=== PATIENT | female | born 1990 | race Caucasian/White ===

== ENCOUNTER 2020-12-14 14:19 | Inpatient (IN) | payer BC ==
[2020-12-14] MEDS ORDERED: Ondansetron 4 MG/2 ML SDV IVPUSH PRN (14:24)
[2020-12-14] MEDS ORDERED: Misoprostol 100 MCG Tab VAG PRN (14:24)
[2020-12-14] MEDS ORDERED: Sodium Chloride 0.9% 10 ML Syringe FLUSH PRN (14:24)
[2020-12-14] MEDS ORDERED: Nalbuphine 10 MG/1 ML Vial IVPUSH PRN (14:24)
--- NOTE | 2020-12-14 14:28 | PCM.LDHP ---
L&D History of Present Illness - General Date of Service: 12/14/20 Admit Problem/Dx: Patient Status Order with Admit Dx/Problem 12/14/20 14:24 Patient Status [ADT] Routine Admission Diagnosis/Problem Admission Diagnosis/Problem Elevated blood pressure Source of Information: Patient History Limitations: Reports: No Limitations - History of Present Illness Introduction:: Patient is a 29 y/o at 39 1/7 wks who presents for IOL for elevated BP seen in clinic. Doing well otherwise. - Related Data Allergies/Adverse Reactions: Allergies Allergy/AdvReac Type Severity Reaction Status Date / Time Latex, Natural Rubber Allergy Hives Verified 12/14/20 14:52 Past Medical History AXLE TURNER History: Reports: : 2 Para: 0 LMP (Approximate): - Past Surgical History HEENT Surgical History: Reports: Oral Surgery (wisdom tooth extraction) Social & Family History - Tobacco Use Tobacco Use Status *Q: Never Tobacco User - Alcohol Use Alcohol Use History: No - Recreational Drug Use Recreational Drug Use: No H&P Review of Systems - Review of Systems: Review Of Systems: See Below General: Reports: No Symptoms Pulmonary: Reports: No Symptoms Cardiovascular: Reports: No Symptoms Gastrointestinal: Reports: No Symptoms Genitourinary: Reports: No Symptoms Musculoskeletal: Reports: No Symptoms Psychiatric: Reports: No Symptoms Neurological: Reports: No Symptoms L&D Exam - Exam Exam: See Below - OB Specific Contraction Intensity: Irritability Movement: Active Heart Tones: Present Heart Tones per Min: 130 Heart Rate (FHR) Variability: Moderate (6-25 bmp) Presentation: Vertex - Roberson Score Roberson Score Cervix Position: Posterior Roberson Score Consistency: Medium Roberson Score Effacement: 0-30% Roberson Score Dilation: 1-2 cm Roberson Score Infant's Station: -3 Roberson Score Total: 2 - Exam General: Alert, Oriented, Cooperative Lungs: Clear to Auscultation, Normal Respiratory Effort Cardiovascular: Regular Rate, Regular Rhythm GI/Abdominal Exam: Soft, Non-Tender Genitourinary: Normal external exam Extremities: Normal Inspection Skin: Warm, Dry, Intact - Patient Data Result Diagrams: 12/14/20 14:44 12/14/20 14:44 - Problem List (1) 39 weeks gestation of SNOMED Code(s): 67344300 ICD Code: Z3A.39 - 39 WEEKS GESTATION OF Status: Acute Current Visit: Yes (2) Preeclampsia SNOMED Code(s): 176338442 ICD Code: O14.90 - UNSPECIFIED PRE-ECLAMPSIA, UNSPECIFIED TRIMESTER Status: Acute Current Visit: Yes Qualifiers: Trimester: third trimester Qualified Code(s): O14.93 - Unspecified pre- eclampsia, third trimester Problem List Initiated/Reviewed/Updated: Yes Orders Last 24hrs: Active Orders 24 hr Category Date Time Status Patient Status [ADT] Routine ADT 12/14/20 14:24 Active Communication Order [RC] ASDIRECTED Care 12/14/20 14:24 Active Communication Order [RC] ASDIRECTED Care 12/14/20 14:24 Active Communication Order [RC] ASDIRECTED Care 12/14/20 14:24 Active Non Stress Test [RC] PER UNIT ROUTINE Care 12/14/20 14:24 Active Notify Provider [RC] ASDIRECTED Care 12/14/20 14:24 Active Notify Provider [RC] ASDIRECTED Care 12/14/20 14:25 Active Notify Provider [RC] PRN Care 12/14/20 14:24 Active Peripheral IV Care [RC] . DIRECTED Care 12/14/20 14:25 Active Up ad Adeola [RC] ASDIRECTED Care 12/14/20 14:25 Active Vaginal Exam [RC] ASDIRECTED Care 12/14/20 14:24 Active Vital Signs [RC] ASDIRECTED Care 12/14/20 14:24 Active Vital Signs [RC] PER UNIT ROUTINE Care 12/14/20 14:24 Active Regular Diet [DIET] Diet 12/14/20 Lunch Active ALANINE AMINOTRANSFERASE,ALT [CHEM] Routine Lab 12/14/20 14:24 Ordered ASPARTATE AMNIOTRANSFERASE,AST [CHEM] Routine Lab 12/14/20 14:24 Ordered CBC W/O DIFF,HEMOGRAM [HEME] Routine Lab 12/14/20 14:24 Ordered CREATININE W/GFR [CHEM] Routine Lab 12/14/20 14:24 Ordered PROTEIN/CREATININE RATIO,URINE [URCHEM] Routine Lab 12/14/20 14:24 Ordered RAPID PLASMA REAGIN,RPR [CHEM] Routine Lab 12/14/20 14:24 Ordered TYPE AND SCREEN [BBK] Routine Lab 12/14/20 14:24 Ordered Ampicillin 1 gm Med 12/15/20 04:30 Ordered Sodium Chloride 0.9% [Normal Saline] 100 ml IV Q4H Ampicillin 2 gm Med 12/15/20 00:30 Ordered Sodium Chloride 0.9% [Normal Saline] 100 ml IV ONETIME Lactated Ringers [Ringers, Lactated] 1,000 ml Med 12/14/20 14:30 Ordered IV ASDIRECTED Nalbuphine [Nubain] Med 12/14/20 14:24 Ordered 10 mg IVPUSH Q2H PRN Ondansetron [Zofran] Med 12/14/20 14:24 Ordered 4 mg IVPUSH Q4H PRN Oxytocin/Lactated Ringers [Pitocin in LR 10 Units/1,000 Med 12/14/20 14:30 Or dered ML] 10 unit in 1,000 ml IV .CONTINUOUS Oxytocin/Lactated Ringers [Pitocin in LR 10 Units/1,000 Med 12/14/20 14:30 Ordered ML] 10 unit in 1,000 ml IV TITRATE Sodium Chloride 0.9% [Saline Flush] Med 12/14/20 14:24 Ordered 10 ml FLUSH ASDIRECTED PRN miSOPROStoL [Cytotec] Med 12/14/20 14:24 Ordered 25 mcg VAG Q4H PRN Electronic Heart Tones Internal [WOMSER] Per Unit Oth 12/14/20 14:24 Ordered Routine Medication Administration Instruction [OM.PC] Oth 12/14/20 14:30 Ordered ASDIRECTED Peripheral IV Insertion Adult [OM.PC] Routine Oth 12/14/20 14:24 Ordered Resuscitation Status Routine Resus Stat 12/14/20 14:24 Ordered Medication Orders Oxytocin/Lactated Ringer's (Pitocin In Lr 10 Units/1,000 Ml) 10 unit in 1,000 mls @ 12 mls/hr IV TITRATE MAYNOR; Protocol Ampicillin Sodium 2 gm/ Sodium (Chloride) 100 mls @ 200 mls/hr IV ONETIME ONE Stop: 12/15/20 00:59 Ampicillin Sodium 1 gm/ Sodium (Chloride) 100 mls @ 200 mls/hr IV Q4H MAYNOR Oxytocin/Lactated Ringer's (Pitocin In Lr 10 Units/1,000 Ml) 10 unit in 1,000 mls @ 500 mls/hr IV .CONTINUOUS MAYNOR Lactated Ringer's (Ringers, Lactated) 1,000 mls @ 40 mls/hr IV ASDIRECTED MAYNOR Misoprostol (Cytotec) 25 mcg VAG Q4H PRN PRN Reason: cervical ripening Nalbuphine HCl (Nubain) 10 mg IVPUSH Q2H PRN PRN Reason: Pain Ondansetron HCl (Zofran) 4 mg IVPUSH Q4H PRN PRN Reason: Nausea/Vomiting Sodium Chloride (Saline Flush) 10 ml FLUSH ASDIRECTED PRN PRN Reason: Keep Vein Open Assessment/Plan Comment:: * Labs done and c/w preeclampsia. Monitor BP's closely * Induction to be done with Cytotec. Pitocin/AROM when appropriate * GBS positive, will start Ampicillin in more active labor * Pain management per patient preference * Anticipate
[2020-12-14] MEDS ORDERED: Misoprostol 25 MCG (1/4 of 100 MCG) Tab ONE ×2 (15:11→18:56)
[2020-12-14] MEDS: Lactated Ringers 1,000 ML IV SCH (15:18)
--- NOTE | 2020-12-14 21:03 | PCM.PNLD ---
Labor Progress Note - VS & Meds Vital Signs: Last Vital Signs Temp 37.0 C 12/14/20 14:24 Pulse 94 12/14/20 14:24 Resp 16 12/14/20 14:24 BP 134/84 12/14/20 14:24 Pulse Ox 99 12/14/20 14:24 Active Medications: Current Medications Oxytocin/Lactated Ringer's (Pitocin In Lr 10 Units/1,000 Ml) 10 unit in 1,000 mls @ 12 mls/hr IV TITRATE MAYNOR; Protocol Ampicillin Sodium 2 gm/ Sodium (Chloride) 100 mls @ 200 mls/hr IV ONETIME ONE Stop: 12/15/20 00:59 Ampicillin Sodium 1 gm/ Sodium (Chloride) 100 mls @ 200 mls/hr IV Q4H [facility] Oxytocin/Lactated Ringer's (Pitocin In Lr 10 Units/1,000 Ml) 10 unit in 1,000 mls @ 500 mls/hr IV .CONTINUOUS MAYNOR Lactated Ringer's (Ringers, Lactated) 1,000 mls @ 40 mls/hr IV ASDIRECTED MAYNOR Last Admin: 12/14/20 15:18 Dose: 40 mls/hr Documented by: Misoprostol (Cytotec) 25 mcg VAG Q4H PRN PRN Reason: cervical ripening Nalbuphine HCl (Nubain) 10 mg IVPUSH Q2H PRN PRN Reason: Pain Ondansetron HCl (Zofran) 4 mg IVPUSH Q4H PRN PRN Reason: Nausea/Vomiting Sodium Chloride (Saline Flush) 10 ml FLUSH ASDIRECTED PRN PRN Reason: Keep Vein Open Discontinued Medications Misoprostol (Cytotec) Confirm Administered Dose 25 mcg .ROUTE .STK-MED ONE Stop: 12/14/20 15:12 Last Admin: 12/14/20 15:18 Dose: 25 mcg Documented by: Misoprostol (Cytotec) Confirm Administered Dose 25 mcg .ROUTE .STK-MED ONE Stop: 12/14/20 18:57 Last Admin: 12/14/20 20:41 Dose: 25 mcg Documented by: - Uterine Contractions Uterine Monitoring Mode: External [place] Contraction Intensity: Mild Uterine Resting Tone: Soft - Monitoring Monitor Mode: External Ultrasound Heart Rate (FHR) Baseline: 135 Heart Rate (FHR) Variability: Moderate (6-25 bmp) Accelerations: Present, 15x15 Decelerations: None Strip Review: Category I - Vaginal Exam Dilation (cm): 1.5 Effacement (Percent): 60 Station: -3 Cervical Position: Midposition - Labor Progress (Free Text) Labor Progress: Doing well. 2nd dose of Cytotec placed. Continue present management
[2020-12-15] MEDS ORDERED: Ampicillin 2 GM in Sodium Chloride 0.9% 100 ML IV ONE (00:30)
[2020-12-15] MEDS: Oxytocin/Lactated Ringers 10 UNIT/1,000 ML BAG IV SCH ×2 (04:10→21:11)
[2020-12-15] MEDS: Ampicillin 1 GM in Sodium Chloride 0.9% 100 ML IV SCH ×5 (04:52→21:10)
--- NOTE | 2020-12-15 07:05 | PCM.PNLD ---
Labor Progress Note - VS & Meds Vital Signs: Last Vital Signs Temp 37.0 C 12/14/20 14:24 Pulse 94 12/14/20 14:24 Resp 16 12/14/20 14:24 BP 134/84 12/14/20 14:24 Pulse Ox 99 12/14/20 14:24 Active Medications: Current Medications Oxytocin/Lactated Ringer's (Pitocin In Lr 10 Units/1,000 Ml) 10 unit in 1,000 mls @ 12 mls/hr IV TITRATE MAYNOR; Protocol Last Titration: 12/15/20 04:53 Dose: 4 munits/min, 24 mls/hr Documented by: Ampicillin Sodium 1 gm/ Sodium (Chloride) 100 mls @ 200 mls/hr IV Q4H MAYNOR Last Admin: 12/15/20 04:52 Dose: 200 mls/hr Documented by: Oxytocin/Lactated Ringer's (Pitocin In Lr 10 Units/1,000 Ml) 10 unit in 1,000 mls @ 500 mls/hr IV .CONTINUOUS MAYNOR Lactated Ringer's (Ringers, Lactated) 1,000 mls @ 40 mls/hr IV ASDIRECTED MAYNOR Last Admin: 12/14/20 15:18 Dose: 40 mls/hr Documented by: Misoprostol (Cytotec) 25 mcg VAG Q4H PRN PRN Reason: cervical ripening Nalbuphine HCl (Nubain) 10 mg IVPUSH Q2H PRN PRN Reason: Pain Ondansetron HCl (Zofran) 4 mg IVPUSH Q4H PRN PRN Reason: Nausea/Vomiting Sodium Chloride (Saline Flush) 10 ml FLUSH ASDIRECTED PRN PRN Reason: Keep Vein Open Discontinued Medications Ampicillin Sodium 2 gm/ Sodium (Chloride) 100 mls @ 200 mls/hr IV ONETIME ONE Stop: 12/15/20 00:59 Last Admin: 12/15/20 01:03 Dose: 200 mls/hr Documented by: Misoprostol (Cytotec) Confirm Administered Dose 25 mcg .ROUTE .STK-MED ONE Stop: 12/14/20 15:12 Last Admin: 12/14/20 15:18 Dose: 25 mcg Documented by: Misoprostol (Cytotec) Confirm Administered Dose 25 mcg .ROUTE .STK-MED ONE Stop: 12/14/20 18:57 Last Admin: 12/14/20 20:41 Dose: 25 mcg Documented by: - Uterine Contractions Uterine Monitoring Mode: External [place] Contraction Intensity: Mild to Moderate Uterine Resting Tone: Soft - Monitoring Monitor Mode: External Ultrasound Heart Rate (FHR) Baseline: 135 Heart Rate (FHR) Variability: Moderate (6-25 bmp) Accelerations: Present, 15x15 Decelerations: None Strip Review: Category I - Vaginal Exam Dilation (cm): 3.5 Effacement (Percent): 60 Station: -2 Cervical Position: Midposition - Labor Progress (Free Text) Labor Progress: Doing well. Pitocin at 4. Continue present management. Continue antibiotic prophylaxis. BP's upper normal to mild range.
[2020-12-15] MEDS ORDERED: diphenhydrAMINE 50 MG/ML SDV IVPUSH PRN (07:10)
[2020-12-15] MEDS ORDERED: Bupivacaine/fentaNYL/NS 100 ML Bag EPIDUR PRN (07:10)
[2020-12-15] MEDS ORDERED: ePHEDrine 50 MG/ML SDV IVPUSH PRN (07:10)
[2020-12-15] MEDS: Lactated Ringers 1,000 ML IV SCH (07:20)
--- NOTE | 2020-12-15 11:57 | PCM.PNLD ---
Labor Progress Note - VS & Meds Vital Signs: Last Vital Signs Temp 37.0 C 12/14/20 14:24 Pulse 94 12/14/20 14:24 Resp 16 12/14/20 14:24 BP 134/84 12/14/20 14:24 Pulse Ox 99 12/14/20 14:24 Active Medications: Current Medications Diphenhydramine HCl (Benadryl) 25 mg IVPUSH Q6H PRN PRN Reason: pruritis Ephedrine Sulfate (Ephedrine Sulfate) 5 mg IVPUSH ASDIRECTED PRN PRN Reason: Hypotension Fentanyl (Sublimaze) 100 mcg EPIDUR Q3H PRN PRN Reason: Pain Fentanyl/Bupivacaine HCl (Fentanyl/Bupivacaine/Ns 2 Mcg-0.125% 100 Ml) 100 ml EPIDUR ASDIRECTED PRN PRN Reason: Pain Oxytocin/Lactated Ringer's (Pitocin In Lr 10 Units/1,000 Ml) 10 unit in 1,000 mls @ 12 mls/hr IV TITRATE MAYNOR; Protocol Last Titration: 12/15/20 09:21 Dose: 8 munits/min, 48 mls/hr Documented by: Ampicillin Sodium 1 gm/ Sodium (Chloride) 100 mls @ 200 mls/hr IV Q4H MAYNOR Last Admin: 12/15/20 09:20 Dose: 200 mls/hr Documented by: Oxytocin/Lactated Ringer's (Pitocin In Lr 10 Units/1,000 Ml) 10 unit in 1,000 mls @ 500 mls/hr IV .CONTINUOUS MAYNOR Lactated Ringer's (Ringers, Lactated) 1,000 mls @ 40 mls/hr IV ASDIRECTED MAYNOR Last Admin: 12/15/20 07:20 Dose: 40 mls/hr Documented by: Misoprostol (Cytotec) 25 mcg VAG Q4H PRN PRN Reason: cervical ripening Nalbuphine HCl (Nubain) 10 mg IVPUSH Q2H PRN PRN Reason: Pain Ondansetron HCl (Zofran) 4 mg IVPUSH Q4H PRN PRN Reason: Nausea/Vomiting Sodium Chloride (Saline Flush) 10 ml FLUSH ASDIRECTED PRN PRN Reason: Keep Vein Open Discontinued Medications Ampicillin Sodium 2 gm/ Sodium (Chloride) 100 mls @ 200 mls/hr IV ONETIME ONE Stop: 12/15/20 00:59 Last Admin: 12/15/20 01:03 Dose: 200 mls/hr Documented by: Misoprostol (Cytotec) Confirm Administered Dose 25 mcg .ROUTE .STK-MED ONE Stop: 12/14/20 15:12 Last Admin: 12/14/20 15:18 Dose: 25 mcg Documented by: Misoprostol (Cytotec) Confirm Administered Dose 25 mcg .ROUTE .STK-MED ONE Stop: 12/14/20 18:57 Last Admin: 12/14/20 20:41 Dose: 25 mcg Documented by: - Uterine Contractions Uterine Monitoring Mode: External [place] Contraction Intensity: Mild to Moderate Uterine Resting Tone: Soft - Monitoring Monitor Mode: External Ultrasound Heart Rate (FHR) Baseline: 135 Heart Rate (FHR) Variability: Moderate (6-25 bmp) Accelerations: Present, 15x15 Decelerations: Variable (rare) Strip Review: Category II - Vaginal Exam Dilation (cm): 3.5 Effacement (Percent): 60 Station: -2 Cervical Position: Midposition - Labor Progress (Free Text) Labor Progress: Pitocin at 9. Exam similar to previous. AROM performed with release of clear fluid. BP's remain mild range. Denies signs/symptoms. Continue antibiotics for GBS positive status
--- NOTE | 2020-12-15 17:26 | PCM.PNLD ---
Labor Progress Note - VS & Meds Vital Signs: Last Vital Signs Temp 37.0 C 12/14/20 14:24 Pulse 94 12/14/20 14:24 Resp 16 12/14/20 14:24 BP 134/84 12/14/20 14:24 Pulse Ox 99 12/14/20 14:24 Active Medications: Current Medications Diphenhydramine HCl (Benadryl) 25 mg IVPUSH Q6H PRN PRN Reason: pruritis Ephedrine Sulfate (Ephedrine Sulfate) 5 mg IVPUSH ASDIRECTED PRN PRN Reason: Hypotension Fentanyl (Sublimaze) 100 mcg EPIDUR Q3H PRN PRN Reason: Pain Fentanyl/Bupivacaine HCl (Fentanyl/Bupivacaine/Ns 2 Mcg-0.125% 100 Ml) 100 ml EPIDUR ASDIRECTED PRN PRN Reason: Pain Oxytocin/Lactated Ringer's (Pitocin In Lr 10 Units/1,000 Ml) 10 unit in 1,000 mls @ 12 mls/hr IV TITRATE MAYNOR; Protocol Last Titration: 12/15/20 10:15 Dose: 9 munits/min, 54 mls/hr Documented by: Ampicillin Sodium 1 gm/ Sodium (Chloride) 100 mls @ 200 mls/hr IV Q4H MAYNOR Last Admin: 12/15/20 17:14 Dose: 200 mls/hr Documented by: Oxytocin/Lactated Ringer's (Pitocin In Lr 10 Units/1,000 Ml) 10 unit in 1,000 mls @ 500 mls/hr IV .CONTINUOUS MAYNOR Lactated Ringer's (Ringers, Lactated) 1,000 mls @ 40 mls/hr IV ASDIRECTED MAYNOR Last Admin: 12/15/20 07:20 Dose: 40 mls/hr Documented by: Misoprostol (Cytotec) 25 mcg VAG Q4H PRN PRN Reason: cervical ripening Nalbuphine HCl (Nubain) 10 mg IVPUSH Q2H PRN PRN Reason: Pain Ondansetron HCl (Zofran) 4 mg IVPUSH Q4H PRN PRN Reason: Nausea/Vomiting Sodium Chloride (Saline Flush) 10 ml FLUSH ASDIRECTED PRN PRN Reason: Keep Vein Open Discontinued Medications Ampicillin Sodium 2 gm/ Sodium (Chloride) 100 mls @ 200 mls/hr IV ONETIME ONE Stop: 12/15/20 00:59 Last Admin: 12/15/20 01:03 Dose: 200 mls/hr Documented by: Misoprostol (Cytotec) Confirm Administered Dose 25 mcg .ROUTE .STK-MED ONE Stop: 12/14/20 15:12 Last Admin: 12/14/20 15:18 Dose: 25 mcg Documented by: Misoprostol (Cytotec) Confirm Administered Dose 25 mcg .ROUTE .STK-MED ONE Stop: 12/14/20 18:57 Last Admin: 12/14/20 20:41 Dose: 25 mcg Documented by: - Uterine Contractions Uterine Monitoring Mode: External [place] Contraction Intensity: Mild to Moderate Uterine Resting Tone: Soft - Monitoring Monitor Mode: External Ultrasound Heart Rate (FHR) Baseline: 135 Heart Rate (FHR) Variability: Moderate (6-25 bmp) Accelerations: Present, 15x15 Decelerations: None Strip Review: Category I - Labor Progress (Free Text) Labor Progress: Doing well. Patient on 11 of pitocin. Starting to get more uncomfortable. Defer SVE for now as ruptured. Reassess as needed
[2020-12-15] MEDS: fentaNYL 100 MCG/2 ML SDV EPIDUR PRN (22:47)
--- NOTE | 2020-12-15 23:19 | PCM.PREANE ---
Preanesthetic Assessment - Procedure Proposed Procedure: epidural - Anesthesia/Transfusion/Family Hx Anesthesia History: No Prior Anesthesia Family History of Anesthesia Reaction: No Transfusion History: No Prior Transfusion(s) - Review of Systems General: Fatigue, Malaise Pulmonary: No Symptoms Cardiovascular: No Symptoms Gastrointestinal: Abdominal Pain (labor) Neurological: No Symptoms Other: Reports: None - Physical Assessment Vital Signs: Last Vital Signs Temp 37.0 C 12/14/20 14:24 Pulse 94 12/14/20 14:24 Resp 16 12/14/20 14:24 BP 134/84 12/14/20 14:24 Pulse Ox 99 12/14/20 14:24 Height: 1.65 m Weight: 104.78 kg ASA Class: 2 Mental Status: Alert & Oriented x3 Airway Class: Mallampati = 2 Dentition: Reports: Normal Dentition Thyro-Mental Finger Breadths: 3 Mouth Opening Finger Breadths: 2 ROM/Head Extension: Full Lungs: Clear to Auscultation, Normal Respiratory Effort Cardiovascular: Regular Rate, Regular Rhythm - Lab Values: Laboratory Last Values WBC 7.64 K/mm3 (3.98-10.04) 12/14/20 14:44 RBC 4.06 M/mm3 (3.98-5.22) 12/14/20 14:44 Hgb 12.3 gm/dl (11.2-15.7) 12/14/20 14:44 Hct 37.9 % (34.1-44.9) 12/14/20 14:44 MCV 93.3 fl (79.4-94.8) 12/14/20 14:44 MCH 30.3 pg (25.6-32.2) 12/14/20 14:44 MCHC 32.5 g/dl (32.2-35.5) 12/14/20 14:44 RDW Std Deviation 45.1 fL (36.4-46.3) 12/14/20 14:44 Plt Count 200 K/mm3 (182-369) 12/14/20 14:44 MPV 10.8 fl (9.4-12.3) 12/14/20 14:44 Creatinine 0.7 mg/dL (0.55-1.02) 12/14/20 14:44 Est Cr Clr Drug Dosing 104.78 mL/min 12/14/20 14:44 Estimated GFR (MDRD) > 60 mL/min (>60) 12/14/20 14:44 AST 22 U/L (15-37) 12/14/20 14:44 ALT 24 U/L (14-59) 12/14/20 14:44 Ur Random Creatinine 37.8 mg/dL (30.0-125.0) 12/14/20 14:35 U Random Total Protein 19.7 mg/dL (0.0-11.8) H 12/14/20 14:35 Protein/Creatinin Ratio 521.2 mg/g (0-149) H 12/14/20 14:35 RPR Non-reactive (NONREACTIVE) 12/14/20 14:44 SARS-CoV-2 RNA (SVEN) Negative (NEGATIVE) 12/14/20 15:00 Blood Type O POSITIVE 12/14/20 14:44 Gel Antibody Screen Negative 12/14/20 14:44 - Allergies Allergies/Adverse Reactions: Allergies Allergy/AdvReac Type Severity Reaction Status Date / Time Latex, Natural Rubber Allergy Hives Verified 12/14/20 14:52 - Anesthesia Plan Pre-Op Medication Ordered: None - Acknowledgements Anesthesia Type Planned: Epidural Pt an Appropriate Candidate for the Planned Anesthesia: Yes Alternatives and Risks of Anesthesia Discussed w Pt/Guardian: Yes Pt/Guardian Understands and Agrees with Anesthesia Plan: Yes PreAnesthesia Questionnaire - Past Health History Medical/Surgical History: Denies Medical/Surgical History Gastrointestinal History: Reports: GERD RN NICU History: Reports: - Past Surgical History HEENT Surgical History: Reports: Oral Surgery (wisdom tooth extraction) - SUBSTANCE USE Tobacco Use Status *Q: Never Tobacco User Tobacco Use Within Last Twelve Months: No Recreational Drug Use History: No - CURRENT (IN HOUSE) MEDS Current Meds: Current Medications Diphenhydramine HCl (Benadryl) 25 mg IVPUSH Q6H PRN PRN Reason: pruritis Ephedrine Sulfate (Ephedrine Sulfate) 5 mg IVPUSH ASDIRECTED PRN PRN Reason: Hypotension Fentanyl (Sublimaze) 100 mcg EPIDUR Q3H PRN PRN Reason: Pain Last Admin: 12/15/20 22:47 Dose: 100 mcg Documented by: Fentanyl/Bupivacaine HCl (Fentanyl/Bupivacaine/Ns 2 Mcg-0.125% 100 Ml) 100 ml EPIDUR ASDIRECTED PRN PRN Reason: Pain Last Admin: 12/15/20 22:48 Dose: 100 ml Documented by: Oxytocin/Lactated Ringer's (Pitocin In Lr 10 Units/1,000 Ml) 10 unit in 1,000 mls @ 12 mls/hr IV TITRATE MAYNOR; Protocol Last Titration: 12/15/20 22:41 Dose: 15 munits/min, 90 mls/hr Documented by: Ampicillin Sodium 1 gm/ Sodium (Chloride) 100 mls @ 200 mls/hr IV Q4H MAYNOR Last Admin: 12/15/20 21:10 Dose: 200 mls/hr Documented by: Oxytocin/Lactated Ringer's (Pitocin In Lr 10 Units/1,000 Ml) 10 unit in 1,000 mls @ 500 mls/hr IV .CONTINUOUS MAYNOR Lactated Ringer's (Ringers, Lactated) 1,000 mls @ 40 mls/hr IV ASDIRECTED MAYNOR Last Admin: 12/15/20 07:20 Dose: 40 mls/hr Documented by: Misoprostol (Cytotec) 25 mcg VAG Q4H PRN PRN Reason: cervical ripening Nalbuphine HCl (Nubain) 10 mg IVPUSH Q2H PRN PRN Reason: Pain Ondansetron HCl (Zofran) 4 mg IVPUSH Q4H PRN PRN Reason: Nausea/Vomiting Sodium Chloride (Saline Flush) 10 ml FLUSH ASDIRECTED PRN PRN Reason: Keep Vein Open Discontinued Medications Ampicillin Sodium 2 gm/ Sodium (Chloride) 100 mls @ 200 mls/hr IV ONETIME ONE Stop: 12/15/20 00:59 Last Admin: 12/15/20 01:03 Dose: 200 mls/hr Documented by: Misoprostol (Cytotec) Confirm Administered Dose 25 mcg .ROUTE .STK-MED ONE Stop: 12/14/20 15:12 Last Admin: 12/14/20 15:18 Dose: 25 mcg Documented by: Misoprostol (Cytotec) Confirm Administered Dose 25 mcg .ROUTE .STK-MED ONE Stop: 12/14/20 18:57 Last Admin: 12/14/20 20:41 Dose: 25 mcg Documented by:
[2020-12-16] MEDS ORDERED: Phenylephrine/Normal Saline 100 MCG/ML 10 ML Syringe ONE
[2020-12-16] MEDS ORDERED: Bupivacaine 0.25% 10 ML SDV ONE
[2020-12-16] MEDS: fentaNYL 100 MCG/2 ML SDV EPIDUR PRN (00:52)
--- NOTE | 2020-12-16 01:36 | PCM.SN.2 ---
- Free Text/Narrative Note: 0050 In room 31 patient complain of epidural not giving relief on right side. Epidural D/C tip intact. New epidural placed at L2-3. Patient getting equal relief. VSS out of room at 0140.
[2020-12-16] MEDS: Ampicillin 1 GM in Sodium Chloride 0.9% 100 ML IV SCH ×4 (01:57→15:17)
[2020-12-16] MEDS: Oxytocin/Lactated Ringers 10 UNIT/1,000 ML BAG IV SCH ×2 (07:19→12:07)
[2020-12-16] MEDS ORDERED: Misoprostol 200 MCG Tab PO STA (11:35)
--- NOTE | 2020-12-16 12:10 | PCM.DEL ---
L & D Note - General Info Date of Service: 12/16/20 - Delivery Note Labor: Induced by ARM, Induced by Oxytocin Cervical Ripening Method: Misoprostil Delivery Outcome: Livebirth Delivery Method: Spontaneous Vaginal Delivery-Single Infant Delivery Mode: Vacuum Extraction Presentation: Right Occiput Anterior (TOD) Nuchal Cord: Present (tight, not able to be reduced ) Anesthesia Type: Epidural Amniotic Fluid Description: Clear Episiotomy Type: None Laceration: 2nd Degree Suture type: Vicryl Suture size: 2-0 Placenta: Intact, Spontaneous Cord: 3 Vessels Estimated Blood Loss: 300 Resuscitation Needed: Yes : Bulb Syringe, Stimulated, Warmed, Burket Used, Warmer Used Delivery Comments (Free Text/Narrative):: The patient was pushing in the dorsal lithotomy position. Sterile vaginal exam complete/complete/ with pushing. head in TOD presentation. Maternal pushing effort was good and the pelvis was felt to be adequate for an instrument assisted delivery. Given maternal exhaustion (pushing for 4 hours) the decision was made to proceed with vacuum assisted vaginal delivery. The mushroom cup was placed without difficulty at 1123. Total pressure applied 550 mm Hg. Total pop offs 0. Suction was removed following delivery of the head at 1126. Nuchal cord present, but tight and so not reduced. The remainder of the delivered without difficulty at 1128. placed on maternal abdomen. Cord clamped and cut. Cord blood obtained. Placenta allowed time to separate and expelled intact. Moderate bleeding noted. Patient given 600 mcg of buccal Cytotec with good response. Inspection of perineum showed a 2nd degree laceration which extended close to rectum. Rectal exam showed no disruption of rectal mucosa or rectal sphincter. Laceration repaired with a 2-0 vicryl in typical fashion. Epidermis near rectum repaired with running 3-0 vicryl Vacuum Extractor Progress Note - Alternative Labor Strategies Considered Alternative Labor Strategies Considered:: Reports: Yes Strategies Considered:: Reports: Contraction Intensity Adequate, Position Changes Used to Facilitate Rotation & Descent, Empty Bladder Indications Considered:: Reports: Yes Indications:: Reports: Shortening of 2nd Stage for Maternal Benefit Time Out:: Reports: Yes - Patient Prepared Patient Prepared:: Reports: Yes Informed Consent:: Reports: Verbal Risks: Reports: Yes Risks Include:: Reports: Laceration, Shoulder Dystocia, Maternal Injury Anesthesia/Analgesia Adequate:: Reports: Yes - Probability of Success High Probability of Success:: Reports: Yes Weight Estimated:: Reports: AGA Patient Diabetic:: Reports: No Pelvis Adequate:: Reports: Yes Position:: TOD Asynclitic:: Reports: No Station:: with pushing - Application Time Maximum Application Time & Number of Pop-Offs Predetermined:: Reports: Yes Maximum Pressure Maintained in Green Zone (cm Hg):: 550 Total Application Time (min): *max=20min: 3 Number of Times Cup Disengaged:: 0 Type of Vacuum Used:: Reports: Cup: Mushroom type Vacuum Extraction: Successful - Exit Strategy Exit strategy available:: Reports: Yes and resuscitation teams readily available:: Reports: Yes - General Info Date of Service: 12/16/20 - Patient Data Vitals - Most Recent: Last Vital Signs Temp 37.0 C 12/14/20 14:24 Pulse 94 12/14/20 14:24 Resp 16 12/14/20 14:24 BP 134/84 12/14/20 14:24 Pulse Ox 99 12/14/20 14:24 Weight - Most Recent: 104.78 kg - Problem List & Annotations (1) 39 weeks gestation of SNOMED Code(s): 37498058 Code(s): Z3A.39 - 39 WEEKS GESTATION OF Status: Acute Current Visit: Yes (2) Preeclampsia SNOMED Code(s): 259462778 Code(s): O14.90 - UNSPECIFIED PRE-ECLAMPSIA, UNSPECIFIED TRIMESTER Status: Acute Current Visit: Yes Qualifiers: Trimester: third trimester Qualified Code(s): O14.93 - Unspecified pre- eclampsia, third trimester (3) Vacuum-assisted vaginal delivery SNOMED Code(s): 41191730616382276 Code(s): Z37.9 - OUTCOME OF DELIVERY, UNSPECIFIED Status: Acute Current Visit: Yes - Problem List Review Problem List Initiated/Reviewed/Updated: Yes - Assessment Assessment:: PPD#0 - Plan Plan:: * Routine cares * Breast feeding * Monitor BP's closely * Discharge home in 1-2 days
[2020-12-16] MEDS ORDERED: Witch Hazel Medicated Pads 40/Jar TOP PRN (13:26)
[2020-12-16] MEDS ORDERED: Acetaminophen 325 MG Tab PO PRN (13:26)
[2020-12-16] MEDS ORDERED: Benzocaine/Menthol 20%-0.5% Spray 56 GM Canister TOP PRN (13:26)
[2020-12-16] MEDS ORDERED: Ammonia Inhalant Amp ONE (14:06)
[2020-12-17] MEDS: Ibuprofen 600 MG Tab PO PRN (07:37)
--- NOTE | 2020-12-17 07:53 | PCM.PNPP ---
- General Info Date of Service: 12/17/20 Functional Status: Reports: Pain Controlled, Tolerating Diet, Ambulating, Urinating - Review of Systems General: Reports: No Symptoms Pulmonary: Reports: No Symptoms Cardiovascular: Reports: No Symptoms Gastrointestinal: Reports: No Symptoms Genitourinary: Reports: No Symptoms Musculoskeletal: Reports: No Symptoms Neurological: Reports: No Symptoms - Patient Data Vital Signs - Most Recent: Last Vital Signs Temp 36.8 C 12/17/20 03:00 Pulse 97 12/17/20 03:00 Resp 18 12/17/20 03:00 BP 115/90 12/17/20 03:00 Pulse Ox 100 12/17/20 03:00 Weight - Most Recent: 104.78 kg Med Orders - Current: Current Medications Acetaminophen (Tylenol) 650 mg PO Q4H PRN PRN Reason: mild pain or fever Benzocaine/Menthol (Dermoplast Pain Relief [place]) 0 gm TOP ASDIRECTED PRN PRN Reason: Perineal Comfort Measure Last Admin: 12/16/20 14:08 Dose: 1 applic Documented by: Docusate Sodium (Colace) 100 mg PO BID PRN PRN Reason: Constipation Ibuprofen (Motrin) 600 mg PO Q6H PRN PRN Reason: Mild pain or fever Last Admin: 12/17/20 07:37 Dose: 600 mg Documented by: Tony Dunham) 1 pad TOP ASDIRECTED PRN PRN Reason: Perineal Comfort Measure Last Admin: 12/16/20 14:08 Dose: 1 pad Documented by: Discontinued Medications Ammonia (Aromatic Spirit) (Ammonia Aromatic Inhalant) Confirm Administered Dose 1 ampule .ROUTE .STK-MED ONE Stop: 12/16/20 14:07 Last Admin: 12/16/20 15:17 Dose: Not Given Documented by: Bupivacaine HCl (Sensorcaine-Mpf 0.25%) 20 ml .ROUTE .STK-MED ONE Stop: 12/16/20 00:01 Diphenhydramine HCl (Benadryl) 25 mg IVPUSH Q6H PRN PRN Reason: pruritis Ephedrine Sulfate (Ephedrine Sulfate) 5 mg IVPUSH ASDIRECTED PRN PRN Reason: Hypotension Last Admin: 12/16/20 02:39 Dose: 5 mg Documented by: Fentanyl (Sublimaze) 100 mcg EPIDUR Q3H PRN PRN Reason: Pain Last Admin: 12/16/20 00:52 Dose: 100 mcg Documented by: Fentanyl/Bupivacaine HCl (Fentanyl/Bupivacaine/Ns 2 Mcg-0.125% 100 Ml) 100 ml EPIDUR ASDIRECTED PRN PRN Reason: Pain Last Admin: 12/15/20 22:48 Dose: 100 ml Documented by: Oxytocin/Lactated Ringer's (Pitocin In Lr 10 Units/1,000 Ml) 10 unit in 1,000 mls @ 12 mls/hr IV TITRATE MAYNOR; Protocol Last Titration: 12/16/20 06:17 Dose: 20 munits/min, 120 mls/hr Documented by: Ampicillin Sodium 2 gm/ Sodium (Chloride) 100 mls @ 200 mls/hr IV ONETIME ONE Stop: 12/15/20 00:59 Last Admin: 12/15/20 01:03 Dose: 200 mls/hr Documented by: Ampicillin Sodium 1 gm/ Sodium (Chloride) 100 mls @ 200 mls/hr IV Q4H MAYNOR Last Admin: 12/16/20 15:17 Dose: Not Given Documented by: Oxytocin/Lactated Ringer's (Pitocin In Lr 10 Units/1,000 Ml) 10 unit in 1,000 mls @ 500 mls/hr IV .CONTINUOUS MAYNOR Last Admin: 12/16/20 12:07 Dose: 500 mls/hr Documented by: Lactated Ringer's (Ringers, Lactated) 1,000 mls @ 40 mls/hr IV ASDIRECTED MAYNOR Last Admin: 12/15/20 07:20 Dose: 40 mls/hr Documented by: Misoprostol (Cytotec) 25 mcg VAG Q4H PRN PRN Reason: cervical ripening Misoprostol (Cytotec) Confirm Administered Dose 25 mcg .ROUTE .STK-MED ONE Stop: 12/14/20 15:12 Last Admin: 12/14/20 15:18 Dose: 25 mcg Documented by: Misoprostol (Cytotec) Confirm Administered Dose 25 mcg .ROUTE .STK-MED ONE Stop: 12/14/20 18:57 Last Admin: 12/14/20 20:41 Dose: 25 mcg Documented by: Misoprostol (Cytotec) 600 mcg PO ONETIME STA Stop: 12/16/20 11:36 Last Admin: 12/16/20 11:35 Dose: 600 mcg Documented by: Nalbuphine HCl (Nubain) 10 mg IVPUSH Q2H PRN PRN Reason: Pain Ondansetron HCl (Zofran) 4 mg IVPUSH Q4H PRN PRN Reason: Nausea/Vomiting Phenylephrine HCl (Phenylephrine In Ns 100 Mcg/Ml) 1 mg .ROUTE .STK-MED ONE Stop: 12/16/20 00:01 Sodium Chloride (Saline Flush) 10 ml FLUSH ASDIRECTED PRN PRN Reason: Keep Vein Open Tranexamic Acid (Cyklokapron) Confirm Administered Dose 1,000 mg .ROUTE .STK-MED ONE Stop: 12/16/20 09:57 Last Admin: 12/16/20 12:16 Dose: Not Given Documented by: - Infant Interaction Infant Disposition, : in Room with Family Interaction: Holding Infant Feeding: Attempted ; Nursed Fair/Poor Support Person: - Recovery Exam Fundal Tone: Firm Fundal Level: At Umbilicus Fundal Placement: Midline Lochia Amount: Small Lochia Color: Rubra/Red Perineum Description: Other (see below) Other Perinuem Description: second degree laceration with repair. Bladder Status: Voiding - Exam General: Alert, Oriented, Cooperative GI/Abdominal Exam: Soft, Non-Tender Skin: Warm, Dry, Intact - Problem List & Annotations (1) 39 weeks gestation of SNOMED Code(s): 16221407 Code(s): Z3A.39 - 39 WEEKS GESTATION OF Status: Acute Current Visit: Yes (2) Preeclampsia SNOMED Code(s): 525778879 Code(s): O14.90 - UNSPECIFIED PRE-ECLAMPSIA, UNSPECIFIED TRIMESTER Status: Acute Current Visit: Yes Qualifiers: Trimester: third trimester Qualified Code(s): O14.93 - Unspecified pre- eclampsia, third trimester (3) Vacuum-assisted vaginal delivery SNOMED Code(s): 81884010773565731 Code(s): Z37.9 - OUTCOME OF DELIVERY, UNSPECIFIED Status: Acute Current Visit: Yes - Problem List Review Problem List Initiated/Reviewed/Updated: Yes - My Orders Last 24 Hours: My Active Orders 12/16/20 Lunch Regular Diet [DIET] 12/16/20 13:26 Acetaminophen [TylenoL] 650 mg PO Q4H PRN Benzocaine/Menthol [Dermoplast Pain Relief [place]] See Dose Instructions TOP ASDIRECTED PRN Docusate Sodium [Colace] 100 mg PO BID PRN Ibuprofen [Motrin] 600 mg PO Q6H PRN witch Diamante [Tucks] 1 pad TOP ASDIRECTED PRN Heat Therapy [OM.PC] PRN 12/16/20 13:26 Activity as Tolerated [RC] PER UNIT ROUTINE Up ad Adeola [RC] ASDIRECTED Vital Signs [RC] ,,, Assess Lochia [WOMSER] Per Unit Routine Assess Uterine Involution [WOMSER] Per Unit Routine Breast Pump [WOMSER] Per Unit Routine Ice Therapy [OM.PC] Per Unit Routine Perineal Care [OM.PC] Per Unit Routine Peripheral IV Discontinue [OM.PC] Routine Sitz Bath [OM.PC] Per Unit Routine 12/17/20 13:26 Heat Therapy [OM.PC] PRN - Assessment Assessment:: PPD#1 - Plan Plan:: * Routine cares * Breast feeding * BP's normal to mild range * Discharge home tomorrow
[2020-12-17] MEDS: Docusate Sodium 100 MG Cap PO PRN (09:05)
[2020-12-18] MEDS: Ibuprofen 600 MG Tab PO PRN (05:20)
--- NOTE | 2020-12-18 07:35 | PCM.DCSUM1 ---
Discharge Summary - Discharge Data Discharge Date: 12/18/20 Discharge Disposition: Home, Self-Care 01 Condition: Good - Referral to Home Health Primary Care Physician: Patricia Knight MD - Discharge Diagnosis/Problem(s) (1) 39 weeks gestation of SNOMED Code(s): 95778197 ICD Code: Z3A.39 - 39 WEEKS GESTATION OF Status: Acute Current Visit: Yes (2) Preeclampsia SNOMED Code(s): 738212401 ICD Code: O14.90 - UNSPECIFIED PRE-ECLAMPSIA, UNSPECIFIED TRIMESTER Status: Acute Current Visit: Yes Qualifiers: Trimester: third trimester Qualified Code(s): O14.93 - Unspecified pre- eclampsia, third trimester (3) Vacuum-assisted vaginal delivery SNOMED Code(s): 47604705060781009 ICD Code: Z37.9 - OUTCOME OF DELIVERY, UNSPECIFIED Status: Acute Current Visit: Yes - Patient Summary/Data Complications: None Consults: None Recommended Follow-up Testing/Procedures: Follow up in 1 week for BP check and 3 weeks for check Hospital Course: 30 y/o at 39 1/7 wks presented from clinic due to findings of mild range BP's and subsequent diagnosis of preeclampsia without severe features. Induction started with cytotec. Eventually transitioned to pitocin and AROM. Progressed slowly, but consistently to complete dilation. After 4 hours of pushing underwent a VAVD for maternal exhaustion. BP's remained normal to mild range. Was discharged home on PPD#2 - Patient Instructions Diet: Regular Diet as Tolerated Activity: As Tolerated Activity, Other: Pelvic rest for 6 weeks Driving: May Drive Today Showering/Bathing: May Shower Showering/Bathing, Other: May Bathe Notify Provider of: Fever, Increased Pain, Swelling and Redness, Drainage, Nausea and/or Vomiting - Discharge Plan *PRESCRIPTION DRUG MONITORING PROGRAM REVIEWED*: No *COPY OF PRESCRIPTION DRUG MONITORING REPORT IN PATIENT JULIO: No Home Medications: Home Meds Docusate Sodium [Colace] 100 mg PO BID PRN cap 12/17/20 [Rx] Ibuprofen [Motrin] 600 mg PO Q6H PRN tablet 12/17/20 [Rx] Patient Handouts: , Care After Vaginal Delivery Referrals: Patricia Knight MD [Primary Care Provider] - (1 week for BP check 3 weeks for check ) - Discharge Summary/Plan Comment DC Time >30 min.: No - Patient Data Vitals - Most Recent: Last Vital Signs Temp 37.2 C 12/18/20 02:56 Pulse 107 H 12/18/20 02:56 Resp 16 12/18/20 02:56 BP 131/89 12/18/20 02:56 Pulse Ox 98 12/18/20 02:56 Weight - Most Recent: 104.78 kg Med Orders - Current: Current Medications Acetaminophen (Tylenol) 650 mg PO Q4H PRN PRN Reason: mild pain or fever Benzocaine/Menthol (Dermoplast Pain Relief [place]) 0 gm TOP ASDIRECTED PRN PRN Reason: Perineal Comfort Measure Last Admin: 12/16/20 14:08 Dose: 1 applic Documented by: Docusate Sodium (Colace) 100 mg PO BID PRN PRN Reason: Constipation Last Admin: 12/17/20 09:05 Dose: 100 mg Documented by: Ibuprofen (Motrin) 600 mg PO Q6H PRN PRN Reason: Mild pain or fever Last Admin: 12/18/20 05:20 Dose: 600 mg Documented by: Tony Mcnulty (Epi) 1 pad TOP ASDIRECTED PRN PRN Reason: Perineal Comfort Measure Last Admin: 12/16/20 14:08 Dose: 1 pad Documented by: Discontinued Medications Ammonia (Aromatic Spirit) (Ammonia Aromatic Inhalant) Confirm Administered Dose 1 ampule .ROUTE .STK-MED ONE Stop: 12/16/20 14:07 Last Admin: 12/16/20 15:17 Dose: Not Given Documented by: Bupivacaine HCl (Sensorcaine-Mpf 0.25%) 20 ml .ROUTE .STK-MED ONE Stop: 12/16/20 00:01 Diphenhydramine HCl (Benadryl) 25 mg IVPUSH Q6H PRN PRN Reason: pruritis Ephedrine Sulfate (Ephedrine Sulfate) 5 mg IVPUSH ASDIRECTED PRN PRN Reason: Hypotension Last Admin: 12/16/20 02:39 Dose: 5 mg Documented by: Fentanyl (Sublimaze) 100 mcg EPIDUR Q3H PRN PRN Reason: Pain Last Admin: 12/16/20 00:52 Dose: 100 mcg Documented by: Fentanyl/Bupivacaine HCl (Fentanyl/Bupivacaine/Ns 2 Mcg-0.125% 100 Ml) 100 ml EPIDUR ASDIRECTED PRN PRN Reason: Pain Last Admin: 12/15/20 22:48 Dose: 100 ml Documented by: Oxytocin/Lactated Ringer's (Pitocin In Lr 10 Units/1,000 Ml) 10 unit in 1,000 mls @ 12 mls/hr IV TITRATE MAYNOR; Protocol Last Titration: 12/16/20 06:17 Dose: 20 munits/min, 120 mls/hr Documented by: Ampicillin Sodium 2 gm/ Sodium (Chloride) 100 mls @ 200 mls/hr IV ONETIME ONE Stop: 12/15/20 00:59 Last Admin: 12/15/20 01:03 Dose: 200 mls/hr Documented by: Ampicillin Sodium 1 gm/ Sodium (Chloride) 100 mls @ 200 mls/hr IV Q4H MAYNOR Last Admin: 12/16/20 15:17 Dose: Not Given Documented by: Oxytocin/Lactated Ringer's (Pitocin In Lr 10 Units/1,000 Ml) 10 unit in 1,000 mls @ 500 mls/hr IV .CONTINUOUS MAYNOR Last Admin: 12/16/20 12:07 Dose: 500 mls/hr Documented by: Lactated Ringer's (Ringers, Lactated) 1,000 mls @ 40 mls/hr IV ASDIRECTED MAYNOR Last Admin: 12/15/20 07:20 Dose: 40 mls/hr Documented by: Misoprostol (Cytotec) 25 mcg VAG Q4H PRN PRN Reason: cervical ripening Misoprostol (Cytotec) Confirm Administered Dose 25 mcg .ROUTE .STK-MED ONE Stop: 12/14/20 15:12 Last Admin: 12/14/20 15:18 Dose: 25 mcg Documented by: Misoprostol (Cytotec) Confirm Administered Dose 25 mcg .ROUTE .STK-MED ONE Stop: 12/14/20 18:57 Last Admin: 12/14/20 20:41 Dose: 25 mcg Documented by: Misoprostol (Cytotec) 600 mcg PO ONETIME STA Stop: 12/16/20 11:36 Last Admin: 12/16/20 11:35 Dose: 600 mcg Documented by: Nalbuphine HCl (Nubain) 10 mg IVPUSH Q2H PRN PRN Reason: Pain Ondansetron HCl (Zofran) 4 mg IVPUSH Q4H PRN PRN Reason: Nausea/Vomiting Phenylephrine HCl (Phenylephrine In Ns 100 Mcg/Ml) 1 mg .ROUTE .STBranded Reality-MED ONE Stop: 12/16/20 00:01 Sodium Chloride (Saline Flush) 10 ml FLUSH ASDIRECTED PRN PRN Reason: Keep Vein Open Tranexamic Acid (Cyklokapron) Confirm Administered Dose 1,000 mg .ROUTE .[employer] ONE Stop: 12/16/20 09:57 Last Admin: 12/16/20 12:16 Dose: Not Given Documented by:
[2020-12-18] MEDS: Docusate Sodium 100 MG Cap PO PRN (07:48)
== END 2020-12-18 12:19 | disposition home or self-care (01) | DRG 560 ==
LOC: JD.OBCHECK 14:19 → JD.OB 14:20 → OBSVTOIN 12-16 11:28 → JD.OB 12-16 11:29
PROVIDERS: ADMIT Obstetrics & Gynecology; ATTEND Obstetrics & Gynecology
PROC: 10D07Z6 Extraction of Products of Conception, Vacuum, Via Natural or Artificial Opening (ICD-10-PCS; principal; 2020-12-16)
PROC: 10907ZC Drainage of Amniotic Fluid, Therapeutic from Products of Conception, Via Natural or Artificial Opening (ICD-10-PCS; 2020-12-16)
PROC: 3E033VJ Introduction of Other Hormone into Peripheral Vein, Percutaneous Approach (ICD-10-PCS; 2020-12-16)
PROC: 3E0P7VZ Introduction of Hormone into Female Reproductive, Via Natural or Artificial Opening (ICD-10-PCS; 2020-12-16)
PROC: 3E0R3BZ Introduction of Anesthetic Agent into Spinal Canal, Percutaneous Approach (ICD-10-PCS; 2020-12-16)
PROC: 0KQM0ZZ Repair Perineum Muscle, Open Approach (ICD-10-PCS; 2020-12-16)
PROC: 4A1HXCZ Monitoring of Products of Conception, Cardiac Rate, External Approach (ICD-10-PCS; 2020-12-16)
DX: O14.04 Mild to moderate pre-eclampsia, complicating childbirth (principal); Z3A.39 39 weeks gestation of pregnancy; Z37.0 Single live birth; O69.81X0 Labor and delivery complicated by cord around neck, without compression, not applicable or unspecified; O70.1 Second degree perineal laceration during delivery; O99.824 Streptococcus B carrier state complicating childbirth; Z91.040 Latex allergy status; Z20.822 Contact with and (suspected) exposure to COVID-19
CPT/HCPCS: 01967; 36415; 51701; 51702; 59025; 59409; 82565; 82570; 84156; 84450; 84460; 85027; 86592; 86850; 86900; 86901; A9270-GY; J0290; J2370; J2590; J3010; J3490; J7120; U0002

== ENCOUNTER 2022-09-12 23:16 | Inpatient (IN) | payer BC ==
[2022-09-12] MEDS ORDERED: Ondansetron 4 MG/2 ML SDV IVPUSH PRN (23:44)
[2022-09-12] MEDS ORDERED: Nalbuphine HCl 10 MG/ 1ML Amp IVPUSH PRN (23:44)
[2022-09-12] MEDS ORDERED: Sodium Chloride 0.9% 10 ML Syringe FLUSH PRN (23:44)
[2022-09-12] MEDS ORDERED: Lactated Ringers 1,000 ML IV SCH (23:45)
[2022-09-12] MEDS ORDERED: Oxytocin/Lactated Ringers 10 UNIT/1,000 ML BAG IV SCH (23:45)
[2022-09-13] MEDS ORDERED: Sodium Chloride 0.9% 10 ML Syringe FLUSH SCH (09:00)
[2022-09-13] MEDS ORDERED: Oxytocin/Lactated Ringers 10 UNIT/1,000 ML BAG IV SCH (11:00)
[2022-09-13] MEDS ORDERED: Lidocaine 1% 50 ML MDV ONE (18:23)
[2022-09-13] MEDS ORDERED: Docusate Sodium 100 MG Cap PO PRN (18:41)
[2022-09-13] MEDS ORDERED: Benzocaine/Menthol 20%-0.5% Spray 78 GM Cannister TOP PRN (18:41)
[2022-09-13] MEDS ORDERED: Witch Hazel Medicated Pads 40/Jar TOP PRN (18:41)
[2022-09-13] MEDS ORDERED: Ibuprofen 600 MG Tab PO PRN (18:41)
[2022-09-13] MEDS ORDERED: Lidocaine 1% 20 ML MDV INJECT ONE (18:46)
[2022-09-13] MEDS: Acetaminophen 325 MG Tab PO PRN (18:49)
[2022-09-14] MEDS: Acetaminophen 325 MG Tab PO PRN (11:54)
== END 2022-09-14 19:39 | disposition home or self-care (01) | DRG 560 ==
LOC: JD.OBCHECK 23:16 → JD.OB 23:18 → JD.OBCHECK 23:44 → OBSVTOIN 09-13 18:17 → JD.OB 09-13 18:18
PROVIDERS: ADMIT Obstetrics & Gynecology; ATTEND Obstetrics & Gynecology
PROC: 10E0XZZ Delivery of Products of Conception, External Approach (ICD-10-PCS; principal; 2022-09-13)
PROC: 10907ZC Drainage of Amniotic Fluid, Therapeutic from Products of Conception, Via Natural or Artificial Opening (ICD-10-PCS; 2022-09-13)
PROC: 0KQM0ZZ Repair Perineum Muscle, Open Approach (ICD-10-PCS; 2022-09-13)
PROC: 4A1HXCZ Monitoring of Products of Conception, Cardiac Rate, External Approach (ICD-10-PCS; 2022-09-13)
DX: O66.0 Obstructed labor due to shoulder dystocia (principal); Z3A.40 40 weeks gestation of pregnancy; Z37.0 Single live birth; O69.81X0 Labor and delivery complicated by cord around neck, without compression, not applicable or unspecified; O70.1 Second degree perineal laceration during delivery; O48.0 Post-term pregnancy
CPT/HCPCS: 36415; 59025; 59409; 85027; 86592; A9270-GY; J2590; J7120

== ENCOUNTER 2024-03-26 17:36 | Inpatient (IN) | payer BC ==
[2024-03-26] MEDS ORDERED: Sodium Chloride 0.9% 10 ML Syringe FLUSH PRN (17:57)
[2024-03-26] MEDS ORDERED: Lidocaine 1% 50 ML MDV INJECT PRN (17:57)
[2024-03-26] MEDS ORDERED: Ondansetron 4 MG/2 ML SDV IVPUSH PRN (17:57)
[2024-03-26] MEDS ORDERED: Nalbuphine 10 MG/ML Syringe IVPUSH PRN (17:57)
[2024-03-26] MEDS ORDERED: Oxytocin/Lactated Ringers 30 UNIT/500 ML BAG IV SCH ×2 (18:00)
[2024-03-26 18:34] LABS: BASOPHILS PERCENT AUTO 0.3 % (0.0-1.0); EOSINOPHILS ABSOLUTE AUTO 0.1 K/mm3 (0.0-0.4); EOSINOPHILS PERCENT AUTO 0.9 % (0.0-6.0); HEMATOCRIT 35.6 % (37.0-47.0); HEMOGLOBIN 11.8 gm/dl (12.0-16.0); IMMATURE GRAN ABSOLUTE AUTO 0.08 K/mm3 (0.00-0.05); IMMATURE GRAN PERCENT AUTO 0.9 % (0.0-0.4); LYMPHOCYTES ABSOLUTE AUTO 1.8 K/mm3 (1.0-4.8); LYMPHOCYTES PERCENT AUTO 19.1 % (24.0-44.0); MEAN CORPUSCULAR HEMOGLOBIN 29.9 pg (28.0-32.0); MEAN CORPUSCULAR HGB CONC 33.1 g/dl (32.0-36.0); MEAN CORPUSCULAR VOLUME 90.1 fl (83.0-99.0); MEAN PLATELET VOLUME 10.3 fl (9.4-12.3); MONOCYTES ABSOLUTE AUTO 0.6 K/mm3 (0.0-0.8); MONOCYTES PERCENT AUTO 6.3 % (0.0-8.0); NEUTROPHILS ABSOLUTE AUTO 6.7 K/mm3 (1.8-7.7); NEUTROPHILS PERCENT AUTO 72.5 % (41.0-71.0); PLATELET COUNT,PLT 219 K/mm3 (150-400); RED BLOOD CELL COUNT 3.95 M/mm3 (4.10-5.30); WHITE BLOOD CELL COUNT,WBC 9.26 K/mm3 (3.9-11.3)
[2024-03-26] MEDS ORDERED: diphenhydrAMINE 50 MG/ML SDV IVPUSH PRN (20:44)
[2024-03-26] MEDS ORDERED: Bupivacaine/fentaNYL/NS 100 ML Bag EPIDUR PRN (20:44)
[2024-03-26] MEDS ORDERED: fentaNYL 100 MCG/2 ML SDV EPIDUR PRN (20:44)
[2024-03-26] MEDS ORDERED: ePHEDrine 50 MG/ML SDV IVPUSH PRN (20:44)
[2024-03-27] MEDS: Sodium Chloride 0.9% 10 ML Syringe FLUSH SCH ×2 (06:12→16:54)
[2024-03-27] MEDS: Lactated Ringers 1,000 ML IV SCH (06:21)
[2024-03-27] MEDS ORDERED: Sodium Chloride 0.9% 10 ML Syringe FLUSH PRN ×2 (06:27→10:28)
[2024-03-27] MEDS ORDERED: Lactated Ringers 1,000 ML IV SCH (06:30)
[2024-03-27] MEDS ORDERED: ceFAZolin 2 GM Vial ONE ×2 (06:39→07:32)
[2024-03-27] MEDS ORDERED: Ondansetron 4 MG/2 ML SDV ONE (06:40)
[2024-03-27] MEDS ORDERED: Phenylephrine 1% 10 MG/ML SDV ONE (06:40)
[2024-03-27] MEDS ORDERED: Oxytocin 10 Units/1 ML SDV ONE ×2 (06:40→08:28)
[2024-03-27] MEDS ORDERED: Ketorolac 30 MG/ML SDV ONE (06:40)
[2024-03-27] MEDS ORDERED: Morphine PF 10 MG/10 ML SDV ONE (06:42)
[2024-03-27] MEDS: Citric Acid/Sodium Citrate Solution 30 ML Cup PO ONE (07:04)
[2024-03-27] MEDS: Metoclopramide 10 MG/2 ML SDV IVPUSH ONE (07:04)
[2024-03-27] MEDS ORDERED: Lactated Ringers 1,000 ML ONE ×2 (08:28)
[2024-03-27] MEDS ORDERED: Ondansetron 4 MG/2 ML SDV IVPUSH PRN (08:41)
[2024-03-27] MEDS ORDERED: fentaNYL 100 MCG/2 ML SDV IVPUSH PRN (08:41)
[2024-03-27] MEDS ORDERED: diphenhydrAMINE 50 MG/ML SDV IVPUSH PRN ×2 (08:41→10:28)
[2024-03-27] MEDS ORDERED: Naloxone 0.4 MG/ML SDV IVPUSH PRN (10:28)
[2024-03-27] MEDS ORDERED: Ondansetron 4 MG/2 ML SDV IV PRN (10:28)
[2024-03-27] MEDS ORDERED: Acetaminophen/oxyCODONE 325-5 MG Tab PO PRN (10:28)
[2024-03-27] MEDS ORDERED: ePHEDrine 50 MG/ML SDV IVPUSH PRN (10:28)
[2024-03-27] MEDS: Dextrose 5%-Lactated Ringers 1,000 ML IV SCH (12:38)
[2024-03-27] MEDS: Ketorolac 30 MG/ML SDV IVPUSH SCH (15:09)
[2024-03-27] MEDS: ceFAZolin 2 GM in Sodium Chloride 0.9% 50 ML IV ONE (16:54)
[2024-03-28] MEDS: Ibuprofen 600 MG Tab PO PRN (08:17)
[2024-03-28 09:03] LABS: HEMATOCRIT 31.3 % (37.0-47.0); HEMOGLOBIN 10.2 gm/dl (12.0-16.0); MEAN CORPUSCULAR HEMOGLOBIN 30.6 pg (28.0-32.0); MEAN CORPUSCULAR HGB CONC 32.6 g/dl (32.0-36.0); MEAN PLATELET VOLUME 10.2 fl (9.4-12.3); PLATELET COUNT,PLT 195 K/mm3 (150-400); RED BLOOD CELL COUNT 3.33 M/mm3 (4.10-5.30); WHITE BLOOD CELL COUNT,WBC 10.24 K/mm3 (3.9-11.3)
[2024-03-28] MEDS: Simethicone 80 MG Tab.Chew PO PRN (09:22)
[2024-03-28] MEDS: Acetaminophen/oxyCODONE 325-5 MG Tab PO PRN (12:27)
[2024-03-28] MEDS: Docusate Sodium 100 MG Cap PO PRN (23:07)
== END 2024-03-29 11:52 | disposition home or self-care (01) | DRG 540 ==
LOC: JD.OBCHECK 17:36 → JD.OB 17:45 → JD.OBCHECK 18:03 → OBSVTOIN 03-27 07:58 → JD.OB 03-27 07:59
PROVIDERS: ADMIT Obstetrics & Gynecology; ATTEND Obstetrics & Gynecology
PROC: 10D00Z1 Extraction of Products of Conception, Low, Open Approach (ICD-10-PCS; principal; 2024-03-27 08:00)
DX: O40.3XX0 Polyhydramnios, third trimester, not applicable or unspecified (principal); Z3A.40 40 weeks gestation of pregnancy; Z37.0 Single live birth; Z91.040 Latex allergy status; Z79.899 Other long term (current) drug therapy; O32.2XX0 Maternal care for transverse and oblique lie, not applicable or unspecified
CPT/HCPCS: 01961; 36415; 59025; 85025; 85027; 86592; 86850; 86900; 86901; A9270-GY; J0690; J1885; J2274; J2371; J2405; J2590; J2765; J7120; J7121